=== PATIENT | male | born 1995 | race Caucasian/White ===

== ENCOUNTER 2020-08-04 10:24 | Emergency (ER) | payer SELFPAY ==
[~2020-08-04] VITALS: Ht 175.3 cm; Wt 69.4 kg
[2020-08-04 10:54] VITALS: BP 129/73
--- NOTE | 2020-08-04 12:38 | NUR ---
ERP DC FROM TRIAGE
== END 2020-08-04 12:39 | disposition home or self-care (01) ==
LOC: ED 11:30
DX: B34.9 Viral infection, unspecified (principal); R05 Cough; R09.81 Nasal congestion; J02.9 Acute pharyngitis, unspecified; Z87.891 Personal history of nicotine dependence
CPT/HCPCS: 87081; 87147; 87880; 99283